=== PATIENT | female | born 1995 | race Hispanic/Latino ===

== ENCOUNTER 2017-08-25 13:18 | Day surgery (SDC) | payer OTHER ==
[2017-08-25 13:43] VITALS: BP 117/66; TEMP 98.6
[2017-08-25 14:29] VITALS: BMI 27.4
[2017-08-25] MEDS ORDERED: Acetaminophen 325 MG TAB PO PRN (15:07)
[2017-08-25 15:36] LABS: Bilirubin Negative (Negative); Blood, Urine Negative (Negative); Glucose, Urine (Dipstick) Negative (Negative); Ketone, Urine Negative (Negative); Nitrite Negative (Negative); Protein, Urine (Dipstick) Negative (Neg-Trace); Urobilinogen 0.2 mg/dL (0.2-1.0)
[2017-08-25 15:38] LABS: Bacteria/HPF None Seen HPF (None Seen); Hyaline Casts/LPF 0-3 HYALINE CAST LPF (0-3 Hyaline); RBC/HPF None Seen HPF (0-3); Squamous Epithelial 0-3 HPF (0-3); WBC/HPF 0-3 HPF (0-3)
== END 2017-08-25 16:59 | disposition home or self-care (01) ==
LOC: L&D/OP 13:18
PROVIDERS: ATTEND Obstetrics & Gynecology Obstetrics
DX: O99.89 Other specified diseases and conditions complicating pregnancy, childbirth and the puerperium (principal); R10.2 Pelvic and perineal pain; O23.593 Infection of other part of genital tract in pregnancy, third trimester; N76.0 Acute vaginitis; Z3A.34 34 weeks gestation of pregnancy
CPT/HCPCS: 81001; 87480; 87510; 87660; A4353

== ENCOUNTER 2017-10-01 15:47 | Day surgery (SDC) | payer MEDICAID, OTHER ==
[2017-10-01 16:42] LABS: Amnisure Internal Control QC ACCEPTABLE (ACCEPTABLE)
[2017-10-01 16:49] LABS: Amnisure Test No Membranes Rupture (No Rupture)
[2017-10-01 16:51] VITALS: BMI 28.2
--- NOTE | 2017-10-01 17:16 | PDOC.LDHP ---
Labor and Delivery H&P Chief complaint: loss of fluid HPI: 22 yo @ 40 weeks by LMP c/w 13 week US presents with complaint of fluid loss vs. vaginal mucous reported by patient and some suprapubic pain that began this morning. The pain is intermittent and worse with urination. Patient thinks she is feeling some contractions. Reports one episode of vaginal spotting. Denies gush of fluid, endorses mild contractions upon arrival to hospital. Endorses vaginal discharge. Current gestational age (weeks): 40 Due date: 10/01/17 Dating criteria: last menstrual period, first trimester ultrasound (13 weeks) Grav: 1 Para: 0 Current complications: none Abnormal US findings: Yes Past Medical History: none Current medications: pre- vitamins Previous surgical history: none - Physical Exam Vital signs reviewed and normal: yes General: NAD Heart: RRR Lungs: CTAB Abdomen: gravid Extremeties: no edema FHT: category 1 (accelerations present) [place] contractions every: 3 contractions, not regular - Vaginal Exam cm dilated: 1 Effacement: 50% Station: -2 - OB Labs Blood type: A RH: positive Antibody Screen: negative HIV: negative RPR: negative HEPSAg: negative 1 hour GCT: negative GBS: positive Urine drug screen: not done Rubella: immune - Assessment 22 yo F presenting with concern for fluid loss vs. vaginal mucous and suprapubic pain. - Plan Plan: observation in L&D -: 22 yo F presenting with complaint of fluid loss vs. mucous and suprapubic pain. 1. Probable UTI vs. Vaginal infection - straight cath UA and culture, VP3, NST, recheck cervix for change to evaluate for onset of labor. <Dayan Danielson - Last Filed: 10/01/17 17:09> <Jean Claude Schaefer - Last Filed: 10/01/17 23:29> Allergies/Adverse Reactions: Allergies Allergy/AdvReac Type Severity Reaction Status Date / Time No Known Allergies Allergy Verified 10/01/17 16:41 Attending Addendum - Attending Addendum I personally evaluated the patient and discussed the management with Dr. Surjit Rodgers. I agree with the History, Examination, Assessment and Plan documented above with any addition or exceptions noted below. Minimal soft contractions x 30-40 seconds every 4-5 minutes with Cat 1 FHR strip. D/C home with labor precautions to return to L&D. Keep appt in office tomorrow. Resident staff to Monitor lab for results. <Jean Claude Schaefer - Last Filed: 10/01/17 23:29>
[2017-10-01 17:34] LABS: Bilirubin Negative (Negative); Blood, Urine Negative (Negative); Clarity CLEAR (Clear); Glucose, Urine (Dipstick) Negative (Negative); Leukocyte Negative (Negative); Nitrite Negative (Negative); Protein, Urine (Dipstick) Negative (Neg-Trace); Specific Gravity, Urine 1.011 (1.002-1.036); Urobilinogen 0.2 mg/dL (0.2-1.0)
[2017-10-01] MEDS ORDERED: metroNIDAZOLE 500 MG TAB PO SCH (21:00)
== END 2017-10-01 19:19 | disposition home or self-care (01) ==
LOC: L&D/OP 15:47
PROVIDERS: ATTEND Family Medicine
DX: O99.89 Other specified diseases and conditions complicating pregnancy, childbirth and the puerperium (principal); N89.8 Other specified noninflammatory disorders of vagina; O47.1 False labor at or after 37 completed weeks of gestation; R10.30 Lower abdominal pain, unspecified; Z3A.40 40 weeks gestation of pregnancy; Z79.899 Other long term (current) drug therapy
CPT/HCPCS: 51701; 81003; 84112; 87480; 87510; 87660; 99283; A4353

== ENCOUNTER 2017-10-02 19:47 | Inpatient (IN) | payer MEDICAID, OTHER, SELFPAY ==
[2017-10-02 20:16] VITALS: BMI 28.7
[2017-10-02] MEDS ORDERED: LR / Pitocin 40 units/1000 ml 1,000 ML IV PRN (20:35)
[2017-10-02] MEDS ORDERED: Docusate 100 MG CAP PO PRN (20:35)
[2017-10-02] MEDS ORDERED: Lidocaine 1% (PF) 30 ML VIAL SC PRN (20:35)
[2017-10-02] MEDS ORDERED: Ondansetron HCl/PF 4 MG/2 ML Vial IVP PRN (20:35)
[2017-10-02] MEDS ORDERED: HYDROcodone/Acetaminophen 5/325 mg Tablet PO PRN ×2 (20:35)
[2017-10-02] MEDS ORDERED: Promethazine HCl 25 MG/ML VIAL IM PRN (20:35)
[2017-10-02] MEDS ORDERED: Misoprostol 200 MCG TAB PR PRN (20:35)
[2017-10-02] MEDS ORDERED: Ibuprofen 800 MG TAB PO PRN (20:35)
--- NOTE | 2017-10-02 20:43 | PDOC.LDHP ---
Labor and Delivery H&P Chief complaint: contractions HPI: Patient is a 22yo at 40wks by LMP/13w sono complains of ctx onset this afternoon around 4pm. +FM, no LOF, no VB. Seen in L&D yesterday for possible LOF , found to have BV, discharged with Flagyl but has not yet taken it. Yesterday was /-2 Current gestational age (weeks): 40 (40.1 weeks) Due date: 10/01/16 Dating criteria: last menstrual period, first trimester ultrasound Grav: 1 Para: 0 Current complications: other (1. Mild pylectasis on 20w sono, repeat at 26w showed normal kidney/bladder. 2. GBS UTI with neg MITZY 3. Anemia of on Fe) Abnormal US findings: Yes (See above.) Past Medical History: None Current medications: pre-jose vitamins, iron Previous surgical history: none Social history: none - Physical Exam Vital signs reviewed and normal: yes General: breathing through contractions Heart: RRR Lungs: CTAB Abdomen: NTTP Extremeties: trace edema FHT: category 1 [place] contractions every: baseline 150's, no accels, no decels, mod variability - Vaginal Exam cm dilated: 4 Effacement: 90% Station: -2 - OB Labs Blood type: A RH: positive Antibody Screen: negative HIV: negative RPR: negative HEPSAg: negative 1 hour GCT: negative GBS: positive Urine drug screen: not done Rubella: immune - Assessment L&D Assessment: term patient in labor at 40.1 by LMP/13w sono presents in latent labor. Ctx q2-5min. Admit to L &D for labor. Cat 1 strip. Recheck cervix in 2 hrs. Patient declined pain control. GBS positive, will give IV PCN q4h during labor. - Plan Plan: admit to L&D <Romina Soto - Last Filed: 10/02/17 20:39> <Marion Henson - Last Filed: 10/02/17 21:44> Allergies/Adverse Reactions: Allergies Allergy/AdvReac Type Severity Reaction Status Date / Time No Known Allergies Allergy Verified 10/01/17 16:41 Attending Addendum - Attending Addendum I personally evaluated the patient and discussed the management with Dr. Soto. I agree with the History, Examination, Assessment and Plan documented above. <Marino Henson - Last Filed: 10/02/17 21:44>
[2017-10-02] MEDS ORDERED: Penicillin G Potassium 5 MILL.UNITS in Sodium Chloride 0.9% 100 ML IVPB SCH (20:45)
[2017-10-02 21:12] LABS: Hemoglobin 13.8 g/dL (12.0-16.0); Mean Corpuscular HGB CONC 34.3 g/dL (32.0-36.0); Mean Corpuscular Volume 93.1 fl (81.0-99.0); Mean Platelet Volume 7.1 fL (7.4-10.4); Platelet Count 264 thou/uL (130-400); White Blood Cell (WBC) Count 13.1 thou/uL (4.8-10.8)
[2017-10-02] MEDS: Lactated Ringer's 1,000 ML IV SCH (21:15)
[2017-10-02 22:04] LABS: Syphilis Antibody Nonreactive (Nonreactive); Syphilis Antibody Index 0.05 S/CO (<1.00 Non-Reactive)
[2017-10-02 23:16] LABS: Hep B Surf Ag Non-Reactive S/CO (NonReactive)
[2017-10-03] MEDS: Penicillin G 2.5 MILL.units 2.5 MILL.UNITS in Premix Bag 1 BAG IVPB SCH ×2 (01:32→07:27)
[2017-10-03] MEDS ORDERED: Lidocaine 1% (PF) 30 ML VIAL ONE (01:35)
[2017-10-03] MEDS ORDERED: Misoprostol 200 MCG TAB ONE (02:24)
[2017-10-03] MEDS ORDERED: Morphine 10 MG/ML VIAL ONE (02:33)
[2017-10-03] MEDS ORDERED: Morphine PF 1 MG/ML SYR IV SCH (02:45)
--- NOTE | 2017-10-03 02:50 | PDOC.OPDEL ---
Addendum entered and electronically signed by Dayan Danielson DO 10/03/17 03:06: additionally, pit bolused and cytotec 800mcg given rectally to control uterine atony and persistent blood loss. Original Note: OB Operative/Delivery Note Delivery Dr/Surgeon: Dayan Danielson DO & Romina Soto DO Assist: Attending: Marion Henson MD Pre-Delivery Diagnosis: active labor Procedure/Post Delivery Dx: spontaneous vaginal delivery Weeks gestation: 40 Anesthesia: local - Findings A Sex: male - 1 min: 8 - 5 min: 9 - Additional Findings/Plan Placenta delivered: spontaneous Repaired Obstetrical Laceration: other (perineal 2nd degree lac with complex bilateral labial & vaginal lacs and rt periclitoral lac) findings: low transverse hysterotomy without extension Estimated blood loss: 2300 Compilations/Other Findings: hemorrhage due to uterine atony and extensive lacerations. admission hgb 13.8, EBL 2300ml. repeat cbc ordered for 4hr pp. continue to monitor until VSS. control pain. if remains tachycardic, check cbc sooner, type & cross 2 units and likely transfuse. See dictated op note for further detail Post delivery plan: routine recovery (slightly prolonged recovery due to PPH.) <Dayan Danielson - Last Filed: 10/03/17 02:48> Attending Addendum - Attending Addendum I was present for the delivery of a viable male . Delivery uncomplicated but repair was complex. PPH due to uterine atony and extensive lacerations. Resolution with repair, Pitocin and cytotec. Will monitor vitals and repeat CBC in 4 hours. <Marion Henson - Last Filed: 10/03/17 07:44>
[2017-10-03] MEDS ORDERED: Adacel (T-DAP) 0.5 ML VIAL IM ONE (05:28)
[2017-10-03] MEDS ORDERED: LR / Pitocin 40 units/1000 ml 1,000 ML IV SCH (05:28)
[2017-10-03] MEDS ORDERED: Preparation H Ointment 28 GM TUBE PR PRN (05:28)
[2017-10-03] MEDS ORDERED: Milk Of Magnesia 30 ML UDCUP PO PRN (05:28)
[2017-10-03] MEDS ORDERED: Lanolin Ointment 7 GM TUBE TOP PRN (05:28)
[2017-10-03] MEDS ORDERED: Bisacodyl 10 MG SUPP PR PRN (05:28)
[2017-10-03 06:43] LABS: #Lymphocytes 1.3 thou/uL (1.20-3.40); #Monocytes 0.8 thou/uL (0.11-0.59); #Neutrophils 16.4 thou/uL (1.40-6.50); %Basophils 0.2 % (0.0-1.0); %Eosinophils 0.2 % (0.0-10.0); %Lymphocytes 7.1 % (21.0-51.0); %Monocytes 4.5 % (0.0-10.0); Hemoglobin 10.3 g/dL (12.0-16.0); Mean Corpuscular HGB CONC 34.1 g/dL (32.0-36.0); Mean Corpuscular Volume 93.8 fl (81.0-99.0); Mean Platelet Volume 7.1 fL (7.4-10.4); Platelet Count 231 thou/uL (130-400); RBC Distribution Width 13.9 % (11.5-14.5); Red Blood Cell (RBC) Count 3.23 mill/uL (4.20-5.40); White Blood Cell (WBC) Count 18.6 thou/uL (4.8-10.8)
[2017-10-03] MEDS: Lactated Ringer's 1,000 ML IV SCH ×3 (07:26→22:20)
[2017-10-03] MEDS ORDERED: Ferrous Sulfate 325 MG TAB PO SCH (08:00)
[2017-10-03] MEDS: Ibuprofen 800 MG TAB PO SCH ×3 (08:59→22:20)
[2017-10-03] MEDS: Prenatal Vitamin 1 TAB PO SCH (08:59)
[2017-10-03] MEDS: Ferrous Sulfate 325 MG TAB PO SCH ×2 (09:00→18:28)
[2017-10-03] MEDS: Docusate Calcium (SURFAK) 240 MG CAP PO SCH ×2 (09:00→22:20)
[2017-10-03] MEDS ORDERED: Docusate Calcium (SURFAK) 240 MG CAP PO SCH (09:00)
--- NOTE | 2017-10-03 09:05 | PDOC.PP ---
Post Progress Note Post Day #: 0 PO intake tolerated: yes Flatus: no Ambulation: no Vital Signs (12 hours) Temp Pulse Resp BP 10/03/17 08:00 98.5 F 100 20 118/75 10/03/17 07:55 98.5 F 100 20 10/03/17 05:05 98.5 F 88 20 108/56 L 10/02/17 23:02 98.1 F 100 20 Weight Weight 83.007 kg - Physical Examination General: NAD Cardiovascular: no m/r/g, RRR Respiratory: clear to auscultation bilaterally, non-labored breathing Abdominal: no distention, appropriately TTP Fundus firm & at: umbilicus Perineum: edematous externally Neurological: no gross focal deficits Psychiatric: A&Ox3, normal affect Result Diagrams: 10/03/17 05:40 Additional Labs: Post Labs Blood Type A POSITIVE 10/02/17 21:00 Hep Bs Antigen Non-Reactive S/CO (NonReactive) 10/02/17 21:00 (1) Normal vaginal delivery Code(s): O80 - ENCOUNTER FOR FULL-TERM UNCOMPLICATED DELIVERY Status: Acute (2) hemorrhage, delivered, current hospitalization Code(s): O72.1 - OTHER IMMEDIATE HEMORRHAGE Status: Acute (3) GBS bacteriuria Code(s): R82.71 - BACTERIURIA Status: Acute (4) Bacterial vaginosis Code(s): N76.0 - ACUTE VAGINITIS; B96.89 - OTH BACTERIAL AGENTS THE CAUSE OF DISEASES CLASSD ELSWHR Status: Acute
[2017-10-03 13:07] LABS: Hemoglobin 8.5 g/dL (12.0-16.0); Mean Corpuscular Hemoglobin 31.9 pg (27.0-31.0); Mean Corpuscular Volume 93.8 fl (81.0-99.0); Platelet Count 179 thou/uL (130-400); RBC Distribution Width 13.7 % (11.5-14.5); Red Blood Cell (RBC) Count 2.67 mill/uL (4.20-5.40); White Blood Cell (WBC) Count 11.5 thou/uL (4.8-10.8)
[2017-10-03] MEDS ORDERED: metroNIDAZOLE 500 MG TAB PO SCH (16:30)
--- NOTE | 2017-10-03 18:38 | DN-2 ---
DELIVERING PHYSICIANS: Dr. Romina Soto and Dr. Dayan Danielson. ATTENDING PHYSICIAN: Dr. Marion Henson. PROCEDURE: Spontaneous vaginal delivery and complex laceration repair. ANESTHESIA: Local for repair. ESTIMATED BLOOD LOSS: 2300 mL PREOPERATIVE DIAGNOSES: 1. Term intrauterine in labor. 2. Anemia of . 3. Maternal GBS bacteriuria, treated with penicillin x1 (inadequate treatment). POSTOPERATIVE DIAGNOSES: 1. Term intrauterine in labor. 2. Anemia of . 3. Uterine atony, status post Cytotec and Pitocin. 4. Complex laceration to include a second degree perineal laceration, bilateral labial and vaginal sulcus lacerations and a right-sided periclitoral laceration. DELIVERY NOTE: This is a 22-year-old female, G1, P0 at 40 weeks 1 day , who delivered a viable male at 0118 hours on 10/03/2017. Following a precipitous antepartum course for nulliparous woman, a vigorous male infant was delivered over a lacerated perineum in the occipitoanterior position. Anterior shoulder and remainder of the body then was delivered. There was no nuchal cord. There was some meconium at delivery; however, no respiratory stress was noted. The head was held down and mouth and nares were bulb suctioned. Cord was clamped and cut and cord blood was collected after delayed cord clamping was performed. Placenta was then delivered intact with a 3- vessel cord noted. Fundal massage was performed and the fundus was found to be boggy; therefore, bimanual massage was initiated as Pitocin was started and 800 mcg of Cytotec were ordered for placement per rectum. Attention was then turned to vaginal area to inspect for laceration, found to have a second degree perineal laceration and bilateral labial lacerations that extended into the vaginal sulcus tears. This entire area additionally was avulsed from the original position. An additional right periclitoral laceration was also noted. Local anesthetic was used throughout the repair, approximately 15 mL of 1% lidocaine were injected locally at the sites. Initial bleeders were repaired with figure- of-eight sutures of 3-0 Vicryl with good hemostasis. Each individual laceration was then repaired in the usual fashion with good approximation and hemostasis. Careful attention was paid at the right periclitoral laceration to avoid suture of the urethra as well as clitoral albright area. Additionally, an indwelling Casey was placed for approximately 24 hours following delivery to avoid additional perineal discomfort with urination. Due to the combined uterine atony as well as the extensive vaginal and perineal lacerations requiring substantial repair, the patient was found to have an estimated blood loss of approximately 2.3 liters. The patient was initially tachycardic immediately following delivery up to 130; however, with pain control and additional IV fluids, the patient's pulse returned to normal. Hemoglobin upon admission was reassuring and was trended in the following hours & days and found to remain stable at 8.5 to 8.8. The patient remained asymptomatic with normal vital signs throughout that time. Infant went to the nursery in good condition for routine care. Apgars were 8 and 9 at 1 and 5 minutes respectively with plans to missing for color. The patient tolerated delivery well and went to after for routine recovery and care. [facility] CENTERJimmy
[2017-10-03] MEDS: metroNIDAZOLE 500 MG TAB PO SCH (22:20)
[2017-10-04 02:17] LABS: Hemoglobin 8.8 g/dL (12.0-16.0); Mean Corpuscular HGB CONC 34.4 g/dL (32.0-36.0); Mean Corpuscular Hemoglobin 32.6 pg (27.0-31.0); Mean Platelet Volume 6.6 fL (7.4-10.4); Platelet Count 200 thou/uL (130-400); RBC Distribution Width 14.1 % (11.5-14.5); White Blood Cell (WBC) Count 8.6 thou/uL (4.8-10.8)
[2017-10-04] MEDS: Ibuprofen 800 MG TAB PO SCH ×3 (05:47→22:26)
--- NOTE | 2017-10-04 06:59 | PDOC.PP ---
Post Progress Note Post Day #: 1 Subjective: Doing well. No new complaints. PO intake tolerated: yes Flatus: yes Ambulation: yes Weight Weight 183 lb - Physical Examination General: NAD Cardiovascular: no m/r/g Respiratory: clear to auscultation bilaterally Abdominal: + bowel sounds Extremities: negative homans (B) Neurological: no gross focal deficits Result Diagrams: 10/04/17 01:59 Additional Labs: Post Labs Blood Type A POSITIVE 10/02/17 21:00 Hep Bs Antigen Non-Reactive S/CO (NonReactive) 10/02/17 21:00 (1) Normal vaginal delivery Code(s): O80 - ENCOUNTER FOR FULL-TERM UNCOMPLICATED DELIVERY Status: Acute (2) hemorrhage, delivered, current hospitalization Code(s): O72.1 - OTHER IMMEDIATE HEMORRHAGE Status: Acute - Assessment/Plan Plan: 1. Doing well 2. Pain meds 3. HCT stable 4. Continue routine PP care
[2017-10-04] MEDS: metroNIDAZOLE 500 MG TAB PO SCH ×2 (09:28→22:26)
[2017-10-04] MEDS: Ferrous Sulfate 325 MG TAB PO SCH ×2 (09:28→17:46)
[2017-10-04] MEDS: Docusate Calcium (SURFAK) 240 MG CAP PO SCH ×2 (09:28→22:26)
[2017-10-04] MEDS: Prenatal Vitamin 1 TAB PO SCH (09:28)
[2017-10-04] MEDS: Lactated Ringer's 1,000 ML IV SCH ×3 (09:29→22:27)
[2017-10-04] MEDS ORDERED: HYDROcodone/Acetaminophen 5/325 mg Tablet PO PRN (12:26)
[2017-10-04] MEDS: Simethicone Chewable 80 MG TAB PO SCH ×3 (14:59→22:27)
[2017-10-05] MEDS: Lactated Ringer's 1,000 ML IV SCH (01:52)
[2017-10-05] MEDS: Ibuprofen 800 MG TAB PO SCH (06:09)
--- NOTE | 2017-10-05 08:31 | DIS ---
DATE OF ADMISSION: 10/02/2017 DATE OF DISCHARGE: 10/05/2014 ADMITTING DIAGNOSIS: Labor at term. DISCHARGE DIAGNOSIS: Labor at term. PROCEDURE: Term spontaneous vaginal delivery. HOSPITAL COURSE: The patient is a 22-year-old G1, P0 female who presented at 40 weeks in latent labo r and subsequently was admitted and had a term spontaneous vaginal delivery with hemorrhag e. Estimated blood loss at the time of delivery is 2300 mL. Her delivery was complicated with a sec ond degree perineal laceration and bilateral sidewall vaginal lacerations. Her hemoglobin dropped from 13.8 and hematocrit of 40.1 to stabilized at 8.8 and hematocrit of 25.6. Today is post day #2, the patient reports she is tolerating p.o., voiding on her own, having decreased lochi a and good pain control. PHYSICAL EXAMINATION: VITAL SIGNS: Today, the day of discharge, blood pressures 108/54, temperature 98.3, pulse of 96, res piratory rate of 20. GENERAL: She appears to be in no acute distress. She is alert and oriented, and cooperative and ple asant to interact with. HEENT: Normocephalic, atraumatic. Fundus is firm. EXTREMITIES: Nontender, nonedematous. She will be discharged to home with instructions to follow up with her primary OB the Clinic in 2 weeks or sooner if she experiences fever, increasing pain or bleeding. She will be discharged home on ibuprofen for pain control as needed.
[2017-10-05 08:37] VITALS: BP 110/55; TEMP 98
[2017-10-05] MEDS: Prenatal Vitamin 1 TAB PO SCH (08:57)
[2017-10-05] MEDS: metroNIDAZOLE 500 MG TAB PO SCH (08:58)
[2017-10-05] MEDS: Simethicone Chewable 80 MG TAB PO SCH (08:58)
[2017-10-05] MEDS: Ferrous Sulfate 325 MG TAB PO SCH (08:58)
[2017-10-05] MEDS: Docusate Calcium (SURFAK) 240 MG CAP PO SCH (08:58)
== END 2017-10-05 13:20 | disposition home or self-care (01) | DRG 774 ==
LOC: L&D/OP 19:47 → L&D 20:55 → 3SW 10-03 05:07
PROVIDERS: ADMIT Obstetrics & Gynecology; ATTEND Obstetrics & Gynecology
PROC: 10E0XZZ Delivery of Products of Conception, External Approach (ICD-10-PCS; principal; 2017-10-03)
PROC: 0KQM0ZZ Repair Perineum Muscle, Open Approach (ICD-10-PCS; 2017-10-03)
PROC: 4A0HXCZ Measurement of Products of Conception, Cardiac Rate, External Approach (ICD-10-PCS; 2017-10-03)
DX: O99.824 Streptococcus B carrier state complicating childbirth (principal); O72.1 Other immediate postpartum hemorrhage; D64.9 Anemia, unspecified; O99.02 Anemia complicating childbirth; O70.1 Second degree perineal laceration during delivery; Z3A.40 40 weeks gestation of pregnancy; Z37.0 Single live birth
CPT/HCPCS: 36415; 51702; 85027; 86780; 86850; 86900; 86901; 87340; 99285; J0595; J2001; J2270; J2540; J7050

== ENCOUNTER 2019-12-17 10:34 | Emergency (ER) | payer MEDICAID, SELFPAY ==
--- NOTE | 2019-12-17 11:57 | RAD ---
EXAM: 3 views of the right shoulder HISTORY: Shoulder pain COMPARISON: None FINDINGS: There is no evidence of acute fracture or dislocation. No degenerative changes are present. No soft tissue swelling is seen. The visualized thorax is unremarkable. IMPRESSION: No evidence of acute osseous abnormality.
[2019-12-17] MEDS ORDERED: Ibuprofen 800 MG TAB ONE (12:11)
== END 2019-12-17 12:17 | disposition home or self-care (01) ==
LOC: ERS 10:34
DX: M25.511 Pain in right shoulder (principal); X50.0XXA Overexertion from strenuous movement or load, initial encounter; Y99.0 Civilian activity done for income or pay